=== PATIENT | male | born 1995 | race Two or more races ===

== ENCOUNTER 2016-07-04 22:24 | Emergency (ER) | payer SELFPAY ==
[~2016-07-04] VITALS: Ht 177.8 cm; Wt 113.4 kg
[2016-07-04 23:09] VITALS: BP 180/74
[2016-07-04 23:44] LABS: OBC FLU VALID
[2016-07-04] MEDS ORDERED: OSEL75CA PO (23:54)
--- NOTE | 2016-07-04 23:54 | PHYS DOC ---
Past Medical History Past Medical History: No Pertinent History Past Surgical History: No Surgical History Alcohol Use: None Drug Use: None Adult General Chief Complaint Chief Complaint: Congestion HPI HPI Patient is a 21 year old male presents emergency department with a family member who both been complaining of headaches cough and generalized body aches and discomfort. They state that this is started today. They state that the fevers have been pretty high. They've been taken Tylenol and ibuprofen for fever chills or generalized body aches and discomfort without much relief. Review of Systems Review of Systems Constitutional: Denies fever or chills [] Eyes: Denies change in visual acuity, redness, or eye pain [] HENT: nasal congestion and sore throat [] Respiratory: cough denies shortness of breath [] Cardiovascular: No additional information not addressed in HPI [] GI: Denies abdominal pain, nausea, vomiting, bloody stools or diarrhea [] : Denies dysuria or hematuria [] Musculoskeletal: Denies back pain or joint pain [] Integument: Denies rash or skin lesions [] Neurologic: Denies headache, focal weakness or sensory changes [] Current Medications Current Medications Current Medications Medications (Trade) Dose Ordered Sig/Yumiko Start Time Stop Time Status Last Admin Dose Admin Acetaminophen (Tylenol) 650 mg 1X ONCE 07/05/16 00:00 07/05/16 00:01 Allergies Allergies Allergies Coded Allergies Type Severity Reaction Last Updated Verified No Known Drug Allergies 07/04/16 No Physical Exam Physical Exam Constitutional: Well developed, well nourished, no acute distress, non-toxic appearance. [] HENT: Normocephalic, atraumatic, bilateral external ears normal, oropharynx moist, no oral exudates, nose normal. Bilateral tympanic membranes appear to be normal. Throat appears to be without erythematous or exudate. Eyes: PERRLA, EOMI, conjunctiva normal, no discharge. [] Neck: Normal range of motion, no tenderness, supple, no stridor. [] Cardiovascular:Heart rate regular rhythm, no murmur [] Lungs & Thorax: Bilateral breath sounds clear to auscultation [] Skin: Warm, dry, no erythema, no rash. [] Back: No tenderness Extremities: No tenderness, no cyanosis, no clubbing, ROM intact, no edema. [] Neurologic: Alert and oriented X 3, normal motor function, normal sensory function, no focal deficits noted. [] Psychologic: Affect normal, judgement normal, mood normal. [] Current Patient Data Vital Signs Vital Signs Date Time Temp Pulse Resp B/P Pulse Ox O2 Delivery O2 Flow Rate FiO2 07/04/16 23:09 98.5 96 18 100 Room Air 98.5 Lab Values Laboratory Tests Test 07/04/16 23:04 Influenza Type A Antigen Negative (NEGATIVE) Influenza Type B Antigen Negative (NEGATIVE) EKG EKG [] Radiology/Procedures Radiology/Procedures [] Course & Med Decision Making Course & Med Decision Making Pertinent Labs and Imaging studies reviewed. (See chart for details) Influenza A and B were negative. Patient still appears to have signs and symptoms of influenza. Patient will be treated for influenza with Tamiflu. Patient will be discharged home in stable condition with recommendations for Tylenol and ibuprofen for fever chills or generalized body aches and discomfort. Also recommended Mucinex DM [id number]. Patient agrees with discharge instructions treatment regimens and follow-up recommendations. Since symptoms to return back to emergency department been provided. [] Dragon Disclaimer Dragon Disclaimer This electronic medical record was generated, in whole or in part, using a voice recognition dictation system. Departure Departure Impression: Primary Impression: Influenza-like symptoms Disposition: HOME, SELF-CARE Condition: STABLE Referrals: NO PCP (PCP) Patient Instructions: Viral Infections, [id number] Additional Instructions: Home to rest Medication as prescribed Tylenol or Ibuprofen for fever, chills or generalized body aches and discomfort Mucinxe DM as prescribed by manufacture Drink plenty of fluids such as water, propel and gatorade Followup with primary care provider in 5-7 days Return to emergency department as needed for signs and symptoms that become worse. Scripts Oseltamivir Phosphate (Tamiflu)75 Mg Capsule1 Cap PO BID #10 CAP Prov:NISREEN CRAFT NP 07/04/16 NISREEN CRAFT RISK CONTROL FIELD REPRESENTATIVE Jul 04, 2016 23:54
[2016-07-05] MEDS ORDERED: ACETAMINOPHEN 325 MG TABLET. PO ONE
== END 2016-07-05 00:06 | disposition home or self-care (01) ==
LOC: ER 22:24
DX: R51 Headache (principal); M79.1 Myalgia; R50.9 Fever, unspecified; R05 Cough
CPT/HCPCS: 87804; 99284

== ENCOUNTER 2017-01-23 20:18 | Emergency (ER) | payer SELFPAY ==
[~2017-01-23] VITALS: Ht 170.2 cm; Wt 113.4 kg
[~2017-01-23 20:18] MED LIST: OSEL75CA PO
[2017-01-23] MEDS ORDERED: KETOROLAC TROMETHAMINE 60 MG/2 ML INJ. IM ONE (21:15)
[2017-01-23] MEDS ORDERED: HYDROcodone/APAP 5/325MG 1 TAB TABLET PO ONE (21:15)
[2017-01-23 21:29] LABS: BILIRUBIN,URINE NEGATIVE (NEG); GLUCOSE,URINE NEGATIVE (NEG); NITRITE,URINE NEGATIVE (NEG); PH,URINE 5.5; PROTEIN,URINE 30 mg/dL (NEG-TRACE); UROBILINOGEN,URINE 0.2 mg/dL (0.2 mg/dL)
--- NOTE | 2017-01-23 21:38 | PHYS DOC ---
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 Family is present who is willing to translate for patient. They say that she started having nontraumatic left lumbar paraspinal pain today and Tylenol has not helped. There has been no weakness numbness tingling bowel or bladder incontinence. Movements of torso make it worse. Review of Systems Review of Systems Constitutional: Denies fever or chills [] Respiratory: Denies cough or shortness of breath [] Cardiovascular: No additional information not addressed in HPI [] GI: Denies abdominal pain, nausea, vomiting, bloody stools or diarrhea [] : Denies dysuria or hematuria [] Musculoskeletal: + back pain Current Medications Current Medications Current Medications Medications (Trade) Dose Ordered Sig/Yumiko Start Time Stop Time Status Last Admin Dose Admin Acetaminophen/ Hydrocodone Bitart (Lortab 5/325) 2 tab 1X ONCE 01/23/17 21:15 01/23/17 21:16 DC 01/23/17 21:44 2 TAB Ketorolac Tromethamine (Toradol Im) 60 mg 1X ONCE 01/23/17 21:15 01/23/17 21:16 DC 01/23/17 21:45 60 MG Allergies Allergies Allergies Coded Allergies Type Severity Reaction Last Updated Verified No Known Drug Allergies 07/04/16 No Physical Exam Physical Exam Constitutional: Well developed, well nourished, no acute distress, non-toxic appearance. [] Cardiovascular:Heart rate regular rhythm, no murmur [] Lungs & Thorax: Bilateral breath sounds clear to auscultation [] Abdomen: Bowel sounds normal, soft, no tenderness, no masses, no pulsatile masses. [] Skin: Warm, dry, no erythema, no rash. [] Back: Positive left lower lumbar tenderness to palpation, no midline tenderness. Current Patient Data Vital Signs Vital Signs Date Time Temp Pulse Resp B/P (MAP) Pulse Ox O2 Delivery O2 Flow Rate FiO2 01/23/17 21:44 17 99 Room Air 01/23/17 20:40 97.8 78 97.8 Lab Values Laboratory Tests Test 01/23/17 21:22 Urine Collection Type Unknown Urine Color Yellow Urine Clarity Clear Urine pH 5.5 Urine Specific [place] >=1.030 Urine Protein 30 mg/dL (NEG-TRACE) Urine Glucose (UA) Negative mg/dL (NEG) Urine Ketones (Stick) Negative mg/dL (NEG) Urine Blood Negative (NEG) Urine Nitrite Negative (NEG) Urine Bilirubin Negative (NEG) Urine Urobilinogen Dipstick 0.2 mg/dL (0.2 mg/dL) Urine Leukocyte Esterase Negative (NEG) Urine RBC Occ /HPF (0-2) Urine WBC Occ /HPF (0-4) Urine Squamous Epithelial Cells Few /LPF Urine Bacteria 0 /HPF (0-FEW) Urine Hyaline Casts Few /HPF Urine Mucus Mod /LPF EKG EKG [] Radiology/Procedures Radiology/Procedures Examination: CT of the abdomen pelvis without contrast HISTORY: History of low mid abdominal pain, left flank pain COMPARISON: None available TECHNIQUE: Axial CT images of the abdomen pelvis were performed without contrast. Coronal and sagittal reformats are performed Exposure: One or more of the following individualized dose reduction techniques were utilized for this examination: 1. Automated exposure control 2. Adjustment of the mA and/or kV according to patient size 3. Use of iterative reconstruction technique FINDINGS: The visualized bibasilar lungs grossly appears unremarkable. No evidence of free air identified in the abdomen. The evaluation of the solid organs is limited due to lack of IV contrast. The evaluation of bowel is limited due to lack of oral contrast. The visualized noncontrasted liver, spleen, adrenals grossly appears unremarkable. The gallbladder is mildly distended. Stomach is mildly distended. The visualized pancreas grossly appears unremarkable. The small bowel is nondilated. Appendix is normal. Feces and gas noted in the colon. Urinary bladder is mildly distended. No evidence of intrarenal collecting system calculi or hydronephrosis identified. The caliber of the aorta grossly appears unremarkable. The urinary bladder is mildly distended. No evidence of lytic bony destructive lesion. Few prominent mesenteric lymph nodes identified in the right lower quadrant abdomen with the largest measuring 1.2 cm. IMPRESSION: 1. No evidence of intrarenal collecting system calculi or hydronephrosis. 2. Examination limited due to streak artifact due to breathing motion. 3. Few prominent right lower quadrant mesenteric lymph nodes, nonspecific. Correlate for mesenteric lymphadenitis. Electronically signed by: Lorenzo Pereyra MD (01/23/2017 9:35 PM) [facility] DICTATED and SIGNED BY: LORENZO PEREYRA MD DATE: 01/23/172129 Course & Med Decision Making Course & Med Decision Making Likely just lumbar paraspinal muscles, pain however given language barrier we' ll order urine CT and reassess. Urine and CT negative for acute process. Given patient appears well, vital signs benign physical exam and workup will discharge with instructions to take ibuprofen for pain and follow with a primary care provider later this week and come back to the ED sooner with worsening pain fevers vomiting or other general concerns. Patient and family aware and agreeable with plan for discharge and verbalized understanding of the above instructions. Dragon Disclaimer Dragon Disclaimer This electronic medical record was generated, in whole or in part, using a voice recognition dictation system. Departure Departure Impression: Primary Impression: Lumbar back pain Disposition: 01 HOME, SELF-CARE Condition: GOOD Referrals: NO PCP (PCP) Patient Instructions: Back Pain, Adult Additional Instructions: TAKE 600MG OF IBUPROFEN EVERY 6 HOURS AND 650MG OF TYLENOL EVERY 6 HOURS FOR YOUR PAIN. FOLLOW WITH A PRIMARY CARE PROVIDER LATER THIS WEEK TO ENSURE IMPROVEMENT. THANK YOU! Problem Qualifiers Primary Impression: Lumbar back pain Chronicity: acute Back pain laterality: left Sciatica presence: without sciatica Qualified Codes: M54.5 - Low back pain TERRA LAINEZ DO Jan 23, 2017 21:38
[2017-01-23 21:39] LABS: BACTERIA,URINE 0 /HPF (0-FEW); RBC,URINE OCC /HPF (0-2); SQUAMOUS EPITHELIAL CELL,UR FEW /LPF; WBC,URINE OCC /HPF (0-4)
[2017-01-23 21:45] VITALS: BP 138/80
== END 2017-01-23 22:30 | disposition home or self-care (01) ==
LOC: ER 20:18
DX: M54.5 Low back pain (principal)
CPT/HCPCS: 74176; 81001; 96372; 99285; J1885